=== PATIENT | female | born 1985 | race Caucasian/White ===

== ENCOUNTER 2017-03-19 16:55 | Emergency (ER) | payer OTHER ==
[~2017-03-19] VITALS: Ht 157.5 cm; Wt 91.3 kg
[~2017-03-19 16:55] MED LIST: CYCL-319 PO; HYDR-3498 PO; MED4DP PO; NAPR-260 PO
[2017-03-19 16:58] VITALS: Ht 157.5 cm; Wt 91.3 kg
[2017-03-19] MEDS ORDERED: KETOROLAC 60 MG INJ IM STA (17:59)
[2017-03-19] MEDS ORDERED: NAPR-260 PO (18:02)
[2017-03-19] MEDS ORDERED: PRED20TA PO (18:02)
[2017-03-19 18:45] VITALS: BP 115/89; PULSE 106; RESP 17; TEMP 98
--- NOTE | 2017-03-19 18:51 | ERD ---
ER Documentation Chief Complaint Chief Complaint LEFT LEG PAIN X 1 WEEK HPI 31-year-old female complaining of left-sided leg pain 1 week. Patient states she had a similar pain 6 months ago and was diagnosed with tendinitis. Patient states that the pain is worse with ambulation and describes as a shooting and throbbing type pain down her lateral left leg. Taking ibuprofen with mild alleviation. Normal urination and bowel movement. Denies weakness to extremities. Denies acute traumatic injury. ROS All systems reviewed and are negative except as per history of present illness. Medications Home Meds Active Scripts Naproxen* (Naprosyn*) 500 Mg Tablet, 500 MG PO BID Y for PAIN AND/OR INFLAMMATION, #30 TAB Prov:OLIVER NETTLES PA-C 03/19/17 Prednisone* (Prednisone*) 20 Mg Tab, 40 MG PO DAILY for 4 Days, TAB Prov:OLIVER NETTLES PA-C 03/19/17 Methylprednisolone* (Medrol* DOSE PACK) 4 Mg/Dose-Pack Tab.ds.pk, 4 MG PO . DIRECTED, #14 PACKET Prov:NGOZI CHOE DO 08/12/15 Cyclobenzaprine Hcl* (Cyclobenzaprine Hcl*) 10 Mg Tablet, 10 MG PO TID, #15 TAB Prov:OLIVER NETTLES PA-C 07/26/15 Naproxen* (Naprosyn*) 500 Mg Tablet, 500 MG PO BID Y for PAIN AND/OR INFLAMMATION, #30 TAB Prov:OLIVER NETTLES PA-C 07/26/15 Hydrocodone Bit-Acetaminophen* (Schuyler*) 5-325 Mg Tab, 1 TAB PO Q4H Y for PAIN, # 10 TAB Prov:OLIVER NETTLES PA-C 07/26/15 Allergies Allergies: Coded Allergies: No Known Drug Allergies (Verified Allergy, Unknown, 07/26/15) PMhx/Soc Medical and Surgical Hx: pt denies Medical Hx, pt denies Surgical Hx History of Surgery: Yes (HAND, VAGINAL) Anesthesia Reaction: No Hx Neurological Disorder: No Hx Respiratory Disorders: No Hx Cardiac Disorders: No Hx Psychiatric Problems: No Hx Miscellaneous Medical Probl: No Hx Alcohol Use: No Hx Substance Use: No Hx Tobacco Use: No Smoking Status: Never smoker Physical Exam Vitals Vital Signs Date Time Temp Pulse Resp B/P Pulse Ox O2 Delivery O2 Flow Rate FiO2 03/19/17 16:58 99.0 87 18 137/86 100 Physical Exam GENERAL: The patient is well-appearing, well-nourished, in no acute distress CHEST: Clear to auscultation bilaterally. There are no rales, wheezes or rhonchi. HEART: Regular rate and rhythm. No murmurs, clicks, rubs or gallops. No S3 or S4. EXTREMITIES: Tender to palpation over left lateral thigh. No pain with internal or external rotation of the hip. NEUROLOGIC: Alert and oriented. Cranial nerves II through XII intact. Motor strength in all 4 extremities with 5 out of 5 strength. Sensation grossly intact. Normal speech and gait. Babinski negative. DTR 2+ throughout. SKIN: There is no apparent rash or petechiae. The skin is warm and dry. HEMATOLOGIC AND LYMPHATIC: There is no evidence of excessive bruising or lymphadenopathy. No gross cervical, axillary, or inguinal lymphadenopathy. BACK: No lumbar midline tenderness. No bony step-offs. Results 24 hrs Current Medications Medications (Trade) Dose Ordered Sig/Maci Route PRN Reason Start Time Stop Time Status Last Admin Dose Admin Ketorolac Tromethamine (Toradol) 60 mg ONCE STAT IM 03/19/17 17:59 03/19/17 18:00 DC 03/19/17 18:16 Procedures/MDM ER course: Toradol given in the ED. MDM: 31-year-old female complaining of left-sided leg pain. Patient's pain is localized over the distribution of the IT band and likely related to inflammation of the tendon. I have low suspicion for acute fracture dislocation. I have low suspicion for bacterial infection. I have low suspicion for nerve impingement, discitis or cauda equina. Patient will be given instructions for stretching of the extremity and pain medication. Patient is told if symptoms change or worsen to return to the ER. All questions answered at discharge. Departure Diagnosis: Primary Impression: Tendonitis Condition: Stable Patient Instructions: Tendonitis Additional Instructions: FOLLOW UP WITH YOUR PRIMARY CARE PHYSICIAN TOMORROW.Return to this facility if you are not improving as expected. OLIVER NETTLES PA-C Mar 19, 2017 18:51
== END 2017-03-19 18:56 | disposition home or self-care (01) ==
LOC: FTE 16:55
DX: M77.9 Enthesopathy, unspecified (principal)
CPT/HCPCS: 96372; J1885; Z7502

== ENCOUNTER 2017-11-03 18:11 | Emergency (ER) | END 2017-11-04 00:10 | disposition home or self-care (01) ==